=== PATIENT | female | born 2000 | race African-American/Black ===

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

== ENCOUNTER 2020-08-21 12:47 | Observation (INO) | payer SELFPAY ==
--- NOTE | 2020-08-21 13:53 | ER Document Report ---
ED Medical Screen (RME) - General Chief Complaint: Chest Pain Stated Complaint: CHEST PAIN Time Seen by Provider: 08/21/20 13:43 TRAVEL OUTSIDE OF THE [place] IN LAST 30 DAYS: No - HPI Notes: 08/21/20 13:51 19-year-old female presents to the emergency room today with left-sided chest pain that started around 9:00 last night, reports that sharp and intermittent. Denies any radiation of pain. Mother states that she woke up this morning with complaints of chest pain and shortness of breath. States 4 days ago she had high fevers and could not taste or smell anything. Denies any Covid positive test or any exposure to Covid positive individuals. Father has a history of 3 CVAs in a diabetic coma, no cardiac issues on mother side. Denies any cardiac issues per patient. LMP 08/11/2020. Denies any history of asthma, no [id number] medications have been tried. Patient does have a history of learning disability I have greeted and performed a rapid initial assessment of this patient. A comp rehensive ED assessment and evaluation of the patient, analysis of test results and completion of the medical decision making process will be conducted by additional ED providers. PHYSICAL EXAMINATION: GENERAL: Well-appearing, well-nourished and in no acute distress. HEAD: Atraumatic, normocephalic. EYES: Pupils equal round extraocular movements intact, conjunctiva are normal. NECK: Normal range of motion CV: s1, s2 tachycardia LUNGS: No respiratory distress Musculoskeletal: Normal range of motion NEUROLOGICAL: Normal speech, normal gait. SKIN: Warm, Dry, normal turgor, no rashes or lesions noted. The patient was evaluated during a global COVID-19 pandemic and that diagnosis was suspected/considered upon their initial presentation. Their evaluation, treatment and testing was consistent with current guidelines for patients who present with complaints or symptoms and may be related to COVID-19. - Related Data Allergies/Adverse Reactions: No Known Allergies Allergy (Verified 08/21/20 13:43) Past Medical History - Social History Chew tobacco use (# tins/day): No Frequency of alcohol use: None Drug Abuse: None Renal/ Medical History: Denies: Hx Peritoneal Dialysis - Immunizations Immunizations up to date: Yes Hx Diphtheria, Pertussis, Tetanus Vaccination: Yes Physical Exam - Vital signs Vitals: Temp Pulse Resp BP Pulse Ox 98.4 F 131 H 16 105/58 L 98 08/21/20 12:59 08/21/20 12:59 08/21/20 12:59 08/21/20 12:59 08/21/20 12:59 Course - Vital Signs Vital signs: Temp Pulse Resp BP Pulse Ox 98.4 F 131 H 16 105/58 L 98 08/21/20 12:59 08/21/20 12:59 08/21/20 12:59 08/21/20 12:59 08/21/20 12:59
--- NOTE | 2020-08-21 14:05 | EKG REPORT ---
SEVERITY:- OTHERWISE NORMAL ECG - SINUS TACHYCARDIA LEFT AXIS DEVIATION : Confirmed by: Juan Lima MD 21-Aug-2020 14:04:56
--- NOTE | 2020-08-21 15:25 | RADIOLOGY REPORT (SQ) ---
EXAM DESCRIPTION: CHEST SINGLE VIEW IMAGES COMPLETED DATE/TIME: 08/21/2020 3:14 pm REASON FOR STUDY: chest pain since 9pm 08/20/2020 COMPARISON: 07/30/2017 EXAM PARAMETERS: NUMBER OF VIEWS: One view. TECHNIQUE: Single frontal radiographic view of the chest acquired. RADIATION DOSE: NA LIMITATIONS: None. FINDINGS: LUNGS AND PLEURA: No opacities, masses or pneumothorax. No pleural effusion. MEDIASTINUM AND HILAR STRUCTURES: No masses. Contour normal. HEART AND VASCULAR STRUCTURES: Heart normal in size. Normal vasculature. BONES: No acute findings. HARDWARE: None in the chest. OTHER: No other significant finding. IMPRESSION: NO ACUTE RADIOGRAPHIC FINDING IN THE CHEST. TECHNICAL DOCUMENTATION: JOB ID: [id number] 2010 [employer]- All Rights Reserved Reading location - IP/workstation name: [email or web address]
[2020-08-21 15:54] LABS: ABSOLUTE BASOPHILS # (AUTO) 0.1 10^3/uL (0.0-0.2); ABSOLUTE EOSINOPHILS # (AUTO) 0.1 10^3/uL (0.0-0.6); ABSOLUTE LYMPHOCYTES (AUTO) 2.2 10^3/uL (0.5-4.7); ABSOLUTE MONOCYTES (AUTO) 0.6 10^3/uL (0.1-1.4); ABSOLUTE NEUT (AUTO) 6.3 10^3/uL (1.7-8.2); BASOPHILS % (AUTO) 0.6 % (0-2); EOSINOPHILS % (AUTO) 1.3 % (0-6); HEMATOCRIT 30.7 % (36.0-47.0); HEMOGLOBIN 10.3 g/dL (12.0-15.5); LYMPHOCYTES % (AUTO) 24.2 % (13-45); MEAN CORPUSCULAR HEMOGLOBIN 24.6 pg (27.0-33.4); MEAN CORPUSCULAR HGB CONC 33.5 g/dL (32.0-36.0); MEAN CORPUSCULAR VOLUME 73 fl (80-97); MONOCYTES % (AUTO) 6.4 % (3-13); PLATELET COUNT 419 10^3/uL (150-450); RED BLOOD COUNT 4.19 10^6/uL (3.72-5.28); RED CELL DISTRIBUTION WIDTH 16.4 % (11.5-14.0); SEGMENTED NEUTROPHILS % (AUTO) 67.5 % (42-78); TOTAL CELLS COUNTED % (AUTO) 100 %; WHITE BLOOD COUNT 9.3 10^3/uL (4.0-10.5)
[2020-08-21 16:11] LABS: ALKALINE PHOSPHATASE 73 U/L (38-126); ANION GAP 13 (5-19); ASPARTATE AMINO TRANSFERASE 42 U/L (14-36); BILIRUBIN,DIRECT 0.3 mg/dL (0.0-0.4); BLOOD UREA NITROGEN 14 mg/dL (7-20); CALCIUM 9.2 mg/dL (8.4-10.2); CARBON DIOXIDE 22 mmol/L (22-30); CHLORIDE 103 mmol/L (98-107); CREATINE KINASE 279 U/L (30-135); GLUCOSE 94 mg/dL (75-110); POTASSIUM 4.1 mmol/L (3.6-5.0); TOTAL PROTEIN 9.1 g/dL (6.3-8.2)
[2020-08-21 16:23] LABS: CREATINE KINASE MB 0.33 ng/mL (<4.55)
[2020-08-21 16:30] LABS: TROPONIN I 0.052 ng/mL
[2020-08-21 16:49] LABS: INTERNATIONAL RATION (INR) 1.07; PROTHROMBIN TIME 14.1 SEC (11.4-15.4)
[2020-08-21 16:52] LABS: D-DIMER 1.65 ug/mL (0.00-0.50)
--- NOTE | 2020-08-21 20:50 | RADIOLOGY REPORT (SQ) ---
EXAM DESCRIPTION: CT CHEST ANGIOGRAPHY WITHOUT THEN WITH IV CONTRAST COMPLETED DATE/TME: 08/21/2020 20:23 CLINICAL HISTORY: 19 years, Female, chest pain, elevated d-dimer PROCEDURE: CTA CHEST CLINICAL HISTORY: 19 years Female chest pain, elevated d-dimer COMPARISON: None. TECHNIQUE: Contiguous axial images were obtained through the chest during the infusion of IV contrast. Reformatted images obtained. MIP reformatted images obtained. This exam was performed according to our department optimization program which includes automated exposure control, adjustment of the mA and/or kv according to patient size and/or use of iterative reconstruction technique. FINDINGS: There are pulmonary emboli in the pulmonary arteries supplying the posterior left lung base and the right posterior lung base. There is atelectasis and consolidation at each lung base, left greater than right. There is a 10 x 5 mm fat attenuation lesion within the pancreas which is nonspecific. Detail is limited. No pneumothorax is seen. Heart size is normal. No pleural effusions. No lymphadenopathy. No evidence of aortic aneurysm. No other significant abnormality. IMPRESSION: Pulmonary emboli are seen in several branches of pulmonary arteries supplying both lungs. Nonspecific fat attenuation lesion in the pancreas.
--- NOTE | 2020-08-21 22:23 | ER Document Report ---
ED General - General Chief Complaint: Chest Pain Stated Complaint: CHEST PAIN Time Seen by Provider: 08/21/20 13:43 Mode of Arrival: Ambulatory Information source: Patient, Parent Cannot obtain history due to: Mentally challenged TRAVEL OUTSIDE OF THE [place] 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 The patient is able to provide some history but her mother ass ists her a fair bit. Patient denies any cough or shortness of breath. She states that her pain is gotten somewhat better since she has been here in the emergency department. She has no fever or chills. She has no chronic lung disease. She does not smoke. She and her mother deny any exposure to recent illness except for the mother herself who had URI symptoms 5 or 6 days ago. The patient is otherwise healthy on no medications. - Related Data Allergies/Adverse Reactions: No Known Allergies Allergy (Verified 08/21/20 13:43) Past Medical History - General Information source: Parent - Social History Smoking Status: Never Smoker Chew tobacco use (# tins/day): No Frequency of alcohol use: None Drug Abuse: None Family History: Reviewed & Not Pertinent Patient has homicidal ideation: No - Medical History Medical History: Other Notes: Cognitive impairment. Renal/ Medical History: Denies: Hx Peritoneal Dialysis - Immunizations Immunizations up to date: Yes Hx Diphtheria, Pertussis, Tetanus Vaccination: Yes Review of Systems - Review of Systems Notes: All other systems are reviewed and are negative or noncontributory except as noted in the present illness. Physical Exam - Vital signs Vitals: Temp Pulse Resp BP Pulse Ox 98.4 F 131 H 16 105/58 L 98 08/21/20 12:59 08/21/20 12:59 08/21/20 12:59 08/21/20 12:59 08/21/20 12:59 - Notes Notes: General: Cheerful alert obese female no acute distress. Vital signs and nursing documentation are reviewed. HEENT: Grossly normal to inspection. Neck: Supple, nontender, trachea midline, no adenopathy. Chest: Normal configuration. Nontender to palpation. Lungs have good air entry bilaterally with no wheezes, rhonchi, or rales heard. Heart: Regular rate and rhythm without murmur rub or gallop. Mild tachycardia initially which normalized as the patient relaxed here in the emergency department. Abdomen: Soft, nontender, no masses organomegaly. Extremities: Without clubbing cyanosis or edema. Negative Homans' sign bilaterally in lower extremities. Skin: Warm moist good turgor no rashes. Neurologic: Patient is alert and oriented x3. No focal neuro deficits are noted. Course - Re-evaluation Re-evalutation: 08/22/20 01:34 Patient remained stable and essentially asymptomatic throughout her stay. Her oxygen saturations were normal. Her blood work showed elevation of her inflammatory markers and her D-dimer. CTA of the chest revealed bilateral lower lobe pulmonary emboli. Patient's initial troponin was slightly elevated and ind eterminate. Repeat troponin was trending downward. Surprisingly, her COVID-19 test ultimately came back negative. Case was discussed with the hospitalist on duty and he accepted the patient for admission. - Vital Signs Vital signs: Temp Pulse Resp BP Pulse Ox 98.2 F 129 H 18 109/71 99 08/22/20 00:39 08/22/20 00:39 08/22/20 00:39 08/22/20 00:39 08/22/20 00:39 - Laboratory Results Result Diagrams: 08/21/20 15:30 08/21/20 15:30 Laboratory Results Interpreted: 08/21/20 08/21/20 08/21/20 15:30 15:30 15:30 Hgb 10.3 L Hct 30.7 L MCV 73 L MCH 24.6 L RDW 16.4 H ESR 105 H APTT D-Dimer AST 42 H Creatine Kinase 279 H C-Reactive Protein Total Protein 9.1 H 08/21/20 08/21/20 15:30 15:30 Hgb Hct MCV MCH RDW ESR APTT 36.0 H D-Dimer 1.65 H AST Creatine Kinase C-Reactive Protein 49.3 H Total Protein 08/22/20 01:33 Labs- All tests 24 hr 08/21/20 08/21/20 08/21/20 15:30 15:30 15:30 WBC 9.3 RBC 4.19 Hgb 10.3 L Hct 30.7 L MCV 73 L MCH 24.6 L MCHC 33.5 RDW 16.4 H Plt Count 419 Lymph % (Auto) 24.2 [place] % (Auto) 6.4 Eos % (Auto) 1.3 Baso % (Auto) 0.6 Absolute Neuts (auto) 6.3 Absolute Lymphs (auto) 2.2 Absolute Monos (auto) 0.6 Absolute Eos (auto) 0.1 Absolute Basos (auto) 0.1 Seg Neutrophils % 67.5 ESR PT INR APTT D-Dimer Sodium 138.1 Potassium 4.1 Chloride 103 Carbon Dioxide 22 Anion Gap 13 BUN 14 Creatinine 0.86 Est GFR ( Amer) > 60 Est GFR (MDRD) Non-Af > 60 Glucose 94 Calcium 9.2 Total Bilirubin 1.0 Direct Bilirubin 0.3 Neonat Total Bilirubin Not Reportable Neonat Direct Bilirubin Not Reportable Neonat Indirect Bili Not Reportable AST 42 H ALT 30 Alkaline Phosphatase 73 Creatine Kinase 279 H CK-MB (CK-2) 0.33 Troponin I 0.052 C-Reactive Protein Total Protein 9.1 H Albumin 4.0 TSH Urine HCG, Qual COVID-19 Source COVID-19 ([facility]) Influenza A (RT-PCR) Influenza B (RT-PCR) RSV (RT-PCR) SARS-CoV-2 Rap RNA(RT-PCR) 08/21/20 08/21/20 08/21/20 15:30 15:30 15:30 WBC RBC Hgb Hct MCV MCH MCHC RDW Plt Count Lymph % (Auto) Beaver % (Auto) Eos % (Auto) Baso % (Auto) Absolute Neuts (auto) Absolute Lymphs (auto) Absolute Monos (auto) Absolute Eos (auto) Absolute Basos (auto) Seg Neutrophils % ESR 105 H PT INR APTT D-Dimer Sodium Potassium Chloride Carbon Dioxide Anion Gap BUN Creatinine Est GFR ( Amer) Est GFR (MDRD) Non-Af Glucose Calcium Total Bilirubin Direct Bilirubin Neonat Total Bilirubin Neonat Direct Bilirubin Neonat Indirect Bili AST ALT Alkaline Phosphatase Creatine Kinase CK-MB (CK-2) Troponin I C-Reactive Protein Total Protein Albumin TSH 1.20 Urine HCG, Qual NEGATIVE COVID-19 Source COVID-19 ([facility]) Influenza A (RT-PCR) Influenza B (RT-PCR) RSV (RT-PCR) SARS-CoV-2 Rap RNA(RT-PCR) 08/21/20 08/21/20 08/21/20 15:30 15:30 17:30 WBC RBC Hgb Hct MCV MCH MCHC RDW Plt Count Lymph % (Auto) Beaver % (Auto) Eos % (Auto) Baso % (Auto) Absolute Neuts (auto) Absolute Lymphs (auto) Absolute Monos (auto) Absolute Eos (auto) Absolute Basos (auto) Seg Neutrophils % ESR PT 14.1 INR 1.07 APTT 36.0 H D-Dimer 1.65 H Sodium Potassium Chloride Carbon Dioxide Anion Gap BUN Creatinine Est GFR ( Amer) Est GFR (MDRD) Non-Af Glucose Calcium Total Bilirubin Direct Bilirubin Neonat Total Bilirubin Neonat Direct Bilirubin Neonat Indirect Bili AST ALT Alkaline Phosphatase Creatine Kinase CK-MB (CK-2) Troponin I C-Reactive Protein 49.3 H Total Protein Albumin TSH Urine HCG, Qual COVID-19 Source Cancelled COVID-19 ([facility]) Cancelled Influenza A (RT-PCR) Influenza B (RT-PCR) RSV (RT-PCR) SARS-CoV-2 Rap RNA(RT-PCR) 08/21/20 08/21/20 17:30 19:23 WBC RBC Hgb Hct MCV MCH MCHC RDW Plt Count Lymph % (Auto) Beaver % (Auto) Eos % (Auto) Baso % (Auto) Absolute Neuts (auto) Absolute Lymphs (auto) Absolute Monos (auto) Absolute Eos (auto) Absolute Basos (auto) Seg Neutrophils % ESR PT INR APTT D-Dimer Sodium Potassium Chloride Carbon Dioxide Anion Gap BUN Creatinine Est GFR ( Amer) Est GFR (MDRD) Non-Af Glucose Calcium Total Bilirubin Direct Bilirubin Neonat Total Bilirubin Neonat Direct Bilirubin Neonat Indirect Bili AST ALT Alkaline Phosphatase Creatine Kinase CK-MB (CK-2) Troponin I 0.040 C-Reactive Protein Total Protein Albumin TSH Urine HCG, Qual COVID-19 Source COVID-19 ([facility]) Influenza A (RT-PCR) NEGATIVE Influenza B (RT-PCR) NEGATIVE RSV (RT-PCR) NEGATIVE SARS-CoV-2 Rap RNA(RT-PCR) NEGATIVE Critical Laboratory Results Reviewed: No Critical Results - Radiology Results Radiology Results Interpreted: 08/22/20 01:33 Chest X-Ray 08/21/20 13:50 IMPRESSION: NO ACUTE RADIOGRAPHIC FINDING IN THE CHEST. Chest/Abdomen CTA 08/21/20 18:12 IMPRESSION: Pulmonary emboli are seen in several branches of pulmonary arteries supplying both lungs. Nonspecific fat attenuation lesion in the pancreas. Critical Radiology Results Reviewed: No Critical Results - EKG Interpretation by Me EKG shows normal: Sinus rhythm, Intervals, QRS Complexes, ST-T Waves Rate: Tachycardia Rhythm: NSR Discharge - Discharge Clinical Impression: Bilateral pulmonary embolism Condition: Stable Disposition: ADMITTED INPATIENT Admitting Provider: Melodie (Hospitalist) Unit Admitted: Medical Floor
[2020-08-21] MEDS ORDERED: NITROGLYCERIN 0.4 MG/TAB 25 TAB/BOTTLE SL PRN (22:43)
[2020-08-21] MEDS ORDERED: METOPROLOL TARTRATE PF/INJ 5 MG/5 ML SDV IV PRN (22:43)
[2020-08-21] MEDS ORDERED: MORPHINE SULFATE 10 MG/ML INJ IV PRN (22:43)
[2020-08-21] MEDS ORDERED: ACETAMINOPHEN 325 MG TABLET PO PRN (22:49)
[2020-08-21] MEDS ORDERED: TEMAZEPAM 7.5 MG CAPSULE PO PRN (22:49)
[2020-08-21] MEDS ORDERED: LEVALBUTEROL HCL NEB 0.63 MG/3 ML AMPUL NEB PRN (22:49)
[2020-08-21] MEDS ORDERED: ONDANSETRON HCL INJ/PF 4 MG/2 ML SDV IV PRN (22:49)
[2020-08-21] MEDS ORDERED: PROMETHAZINE HCL INJ 25 MG/1 ML VIAL IV PRN (22:49)
[2020-08-21] MEDS ORDERED: ASPIRIN 325 MG TABLET PO ONE (23:00)
--- NOTE | 2020-08-21 23:36 | PDOC H&P ---
History of Present Illness Admission Date/PCP: 08/21/20 22:26 History of Present Illness: ASHLEY MARISCAL is a 19 year old female with past medical history of developmental delay, who is being cared for by her parents, brought to ED by her mother complaining of chest pain of 1 day duration. Patient is stating that for the last several days she has been feeling weak, has been feeling febrile, has lost loss of smell and taste. Since last night she started developing left-sided nonradiating pleuritic chest pain. Chest pain is described as sharp, 3/4 on severity scale, worse with cough, movement and breathing, no alleviating factors identified. As per mother who is present in the room yesterday tonight her father had a fall and both mother and daughter had to help him up, she thinks she may have had pulled a muscle. Patient is not working due to her developmental delay, has not had any recent travel, no recent hospitalization, immobilization, or any lower extremity trauma swelling or redness, patient is not taking any medication except for one medication for perimenstrual cramping, she does not recall the name, patient denies having any history of CAD or any history of PE or DVT in the past. Patient denies any shortness of breath, lightheadedness, palpitation, orthopnea, paroxysmal nocturnal dyspnea, headache, vision changes, numbness, tingling, upper or lower extremity swelling, any focal neurological symptoms. When asked about exposure to anybody with COVID-19 infection patient and mother both deny being exposed to anybody and mother stating that patient has no contact with anybody with COVID-19 infection and she hardly gets out of the home, patient mother herself stating that she only goes for grocery shopping and she is very careful with her Covid precautions. Patient mother states that she also have history of DVT for which she was taking Xarelto for several months and currently she is off of it. In ED she was noted to be tachypneic, elevated ESR, elevated D-dimer, elevated CK, elevated troponin, evaded C-reactive protein, a chest CTA showed pulmonary emboli in several branches of pulmonary arteries supplying both lungs. Hospitalist was consulted for admission. Social History Smoking Status: Never Smoker Electronic Cigarette use?: No Family History Family History: Reviewed & Not Pertinent Parental Family History Reviewed: Yes Children Family History Reviewed: Yes Sibling(s) Family History Reviewed.: Yes Medication/Allergy Home Medications: Sulfamethoxazole/Trimethoprim [Bactrim Ds Tablet] 1 each PO BID #14 tablet 07/31/17 Allergies/Adverse Reactions: No Known Allergies Allergy (Verified 08/21/20 13:43) Review of Systems Review of Systems: as per hpi Physical Exam Vital Signs: Temp Pulse Resp BP Pulse Ox 98.4 F 131 H 19 120/83 96 08/21/20 12:59 08/21/20 12:59 08/21/20 17:01 08/21/20 17:01 08/21/20 17:01 Intake & Output 08/20/20 08/21/20 08/22/20 06:59 06:59 06:59 Weight 122.8 kg General appearance: PRESENT: obese Head exam: PRESENT: atraumatic, normocephalic Neck exam: ABSENT: carotid bruit, JVD, lymphadenopathy, thyromegaly Respiratory exam: PRESENT: clear to auscultation zeke. ABSENT: rales, rhonchi, wheezes GI/Abdominal exam: PRESENT: normal bowel sounds, soft. ABSENT: distended, guard ing, mass, organolmegaly, rebound, tenderness Rectal exam: PRESENT: deferred Neurological exam: PRESENT: alert, awake, oriented to person, oriented to place, oriented to time, oriented to situation, CN II-XII grossly intact. ABSENT: motor sensory deficit Skin exam: PRESENT: dry, intact, warm. ABSENT: cyanosis, rash Results Laboratory Results: 08/21/20 15:30 08/21/20 15:30 08/21/20 08/21/20 08/21/20 15:30 15:30 15:30 WBC 9.3 RBC 4.19 Hgb 10.3 L Hct 30.7 L MCV 73 L MCH 24.6 L MCHC 33.5 RDW 16.4 H Plt Count 419 Seg Neutrophils % 67.5 Sodium 138.1 Potassium 4.1 Chloride 103 Carbon Dioxide 22 Anion Gap 13 BUN 14 Creatinine 0.86 Est GFR ( Amer) > 60 Glucose 94 Calcium 9.2 Total Bilirubin 1.0 AST 42 H Alkaline Phosphatase 73 C-Reactive Protein Total Protein 9.1 H Albumin 4.0 TSH 1.20 08/21/20 15:30 WBC RBC Hgb Hct MCV MCH MCHC RDW Plt Count Seg Neutrophils % Sodium Potassium Chloride Carbon Dioxide Anion Gap BUN Creatinine Est GFR ( Amer) Glucose Calcium Total Bilirubin AST Alkaline Phosphatase C-Reactive Protein 49.3 H Total Protein Albumin TSH 08/21/20 08/21/20 08/21/20 15:30 15:30 19:23 Creatine Kinase 279 H CK-MB (CK-2) 0.33 Troponin I 0.052 0.040 Impressions: Chest X-Ray 08/21/20 13:50 IMPRESSION: NO ACUTE RADIOGRAPHIC FINDING IN THE CHEST. Chest/Abdomen CTA 08/21/20 18:12 IMPRESSION: Pulmonary emboli are seen in several branches of pulmonary arteries supplying both lungs. Nonspecific fat attenuation lesion in the pancreas. Assessment and Plan - Diagnosis (1) Bilateral pulmonary embolism Is this a current diagnosis for this admission?: Yes Plan: Unprovoked bilateral PE. Complaining of left-sided pleuritic chest pain and mid upper back pain presentation. Denies any history of previous DVT or PE. CTA positive for multiple PE and several branches of pulmonary arteries bilaterally. ESR 105, D-dimer 1.65, troponin 0 0.052, 0.040, CRP 49.3, SPO2 WNL on RA. EKG sinus tachycardia no acute changes. Of note given patient history of loss of taste, objective fever and loss of smell COVID-19 infection was suspected however COVID-19 serology came back negative. Positive family history of DVT. Denies any recent travel, immobilization, surgery, upper or lower extremity trauma, OCP intake or any malignancy. Due to patient's developmental delay had extensive discussion regarding chronic anticoagulation with patient and mother. Patient's mother stating that she was taking Xarelto and she would like her daughter to be placed on Xarelto to as she is already familiar with the medicat ion. Admit to telemetry, monitor vitals, opioid and nonopioid analgesics for chest pain while monitoring for respiratory depression, incentive spirometry and flutter valve. [employer] Field Service Technician consulted for possible help and to medication assistance. (2) Elevated troponin Is this a current diagnosis for this admission?: Yes Plan: Complaining of nonradiating pleuritic chest pain worse with coughing, movement and breathing. CTA positive for multiple PE and several branches of pulmonary arteries bilaterally. ESR 105, D-dimer 1.65. Troponin 0.052, 0.040 CRP 49.3. SPO2 WNL on RA. EKG sinus tachycardia otherwise no acute changes. Denies any family or personal history of CAD. Most likely due to demand mismatch caused by multiple pulmonary embolus. Case was discussed with Dr. Callaway highway truck driver over the phone. As per Dr. Callaway elevated troponins could be explained by PE and no cardiac work-up or cardiology consult are recommended. Recommendation is to admit to telemetry and monitor, order 2D echo and if indicated consult cardiology. Admit extremity, trend troponins, antiplatelets, statins, 2D echo. (3) Morbid obesity Is this a current diagnosis for this admission?: Yes Plan: BMI 41.2. Diet and lifestyle modification recommended. TSH WNL. - Time Time Spent with patient: 35 or more minutes Anticipated Discharge Disposition: Home, Self Care Anticipated Discharge Timeframe: within 36 hours
[2020-08-22] MEDS: FAMOTIDINE 20 MG TABLET PO SCH ×3 (00:10→21:02)
[2020-08-22] MEDS: ATORVASTATIN CALCIUM 40 MG TABLET PO SCH ×2 (00:10→21:02)
[2020-08-22] MEDS ORDERED: RIVAROXABAN 15 MG TABLET ONE (01:17)
[2020-08-22] MEDS: DEXTROSE 5%-1/2 NORMAL SALINE 1,000 ML IV PRN ×2 (06:03→20:20)
[2020-08-22] MEDS: RIVAROXABAN 15 MG TABLET PO SCH ×3 (07:31→16:28)
[2020-08-22 07:42] LABS: ABSOLUTE EOSINOPHILS # (AUTO) 0.2 10^3/uL (0.0-0.6); ABSOLUTE LYMPHOCYTES (AUTO) 2.4 10^3/uL (0.5-4.7); ABSOLUTE MONOCYTES (AUTO) 0.6 10^3/uL (0.1-1.4); ABSOLUTE NEUT (AUTO) 4.4 10^3/uL (1.7-8.2); BASOPHILS % (AUTO) 0.3 % (0-2); HEMATOCRIT 27.8 % (36.0-47.0); HEMOGLOBIN 9.5 g/dL (12.0-15.5); LYMPHOCYTES % (AUTO) 31.8 % (13-45); MEAN CORPUSCULAR HEMOGLOBIN 24.6 pg (27.0-33.4); MEAN CORPUSCULAR VOLUME 73 fl (80-97); MONOCYTES % (AUTO) 7.7 % (3-13); PLATELET COUNT 418 10^3/uL (150-450); RED BLOOD COUNT 3.84 10^6/uL (3.72-5.28); RED CELL DISTRIBUTION WIDTH 16.4 % (11.5-14.0); SEGMENTED NEUTROPHILS % (AUTO) 58.2 % (42-78); TOTAL CELLS COUNTED % (AUTO) 100 %; WHITE BLOOD COUNT 7.5 10^3/uL (4.0-10.5)
[2020-08-22 08:01] LABS: ALBUMIN 3.7 g/dL (3.5-5.0); ALKALINE PHOSPHATASE 60 U/L (38-126); ANION GAP 12 (5-19); ASPARTATE AMINO TRANSFERASE 29 U/L (14-36); BILIRUBIN,DIRECT 0.3 mg/dL (0.0-0.4); BILIRUBIN,TOTAL 0.8 mg/dL (0.2-1.3); BLOOD UREA NITROGEN 13 mg/dL (7-20); CALCIUM 8.9 mg/dL (8.4-10.2); CARBON DIOXIDE 23 mmol/L (22-30); CHLORIDE 102 mmol/L (98-107); GLUCOSE 99 mg/dL (75-110); POTASSIUM 3.8 mmol/L (3.6-5.0); TOTAL PROTEIN 8.2 g/dL (6.3-8.2)
[2020-08-22] MEDS: DOCUSATE SODIUM 100 MG/10 ML UDC PO SCH (09:29)
[2020-08-22] MEDS: ASPIRIN 81 MG TABLET, CHEWABLE PO SCH (09:29)
--- NOTE | 2020-08-22 16:15 | PDOC PROGRESS REPORT ---
Subjective Date:: 08/22/20 Subjective:: ASHLEY MARISCAL is a 19 year old female with past medical history of developmental delay, who is being cared for by her parents, brought to ED on 08/22/2020 by her mother complaining of chest pain of [address] notable for pulmonary emboli in several branches of pulmonary arteries supplying both lungs. Patient started on Xarelto. Patient without risk factors for PE/DVT. Notably patient's mother with history of DVT. Patient seen on morning rounds. She is resting in bed but awakes easily. O2 sats within normal limits on room air. States that she gets short of breath when exerting herself (i.e putting on her bra) this quickly resolves with rest. Additionally notes cough but states this is minimal. Otherwise denies lightheadedness, chest pain, palpitations, headache, vision changes, numbness, tingling, or any focal neurological symptoms. Discussed case with nursing no complaints or concerns today. Patient was agreeable to calling mother during evaluation evaluation conducted with mother on the phone. Explained with the patient and the mother that we are waiting for an echo to be done before discharging patient home. Both expressed understanding for need of study and are agreeable to this means of treatment. Patient's mother tells me that she will be coming in tomorrow as early as 9:30 AM it is my hope that patient educator will be able to educate patient on Xarelto medication management while mother is present. Reason For Visit: PE, CHEST PAIN Physical Exam Vital Signs: Temp Pulse Resp BP Pulse Ox 97.9 F 92 16 109/64 99 08/22/20 12:06 08/22/20 14:00 08/22/20 12:06 08/22/20 12:06 08/22/20 12:06 Intake & Output 08/21/20 08/22/20 08/23/20 06:59 06:59 06:59 Intake Total 120 Balance 120 Weight 125.8 kg General appearance: PRESENT: no acute distress, cooperative, obese Head exam: PRESENT: atraumatic, normocephalic Eye exam: PRESENT: EOMI Mouth exam: PRESENT: moist Neck exam: PRESENT: full ROM. ABSENT: JVD Respiratory exam: PRESENT: clear to auscultation zeke. ABSENT: rales, rhonchi, wheezes Cardiovascular exam: PRESENT: RRR GI/Abdominal exam: PRESENT: soft. ABSENT: tenderness Extremities exam: PRESENT: full ROM Musculoskeletal exam: PRESENT: ambulatory. ABSENT: deformity, dislocation Neurological exam: PRESENT: alert, awake, oriented to person, oriented to place, oriented to time, oriented to situation, CN II-XII grossly intact. ABSENT: motor sensory deficit Psychiatric exam: PRESENT: appropriate affect Skin exam: PRESENT: dry, intact. ABSENT: rash Results Laboratory Results: 08/22/20 07:18 08/22/20 07:18 08/21/20 08/21/20 08/21/20 15:30 15:30 15:30 WBC RBC Hgb Hct MCV MCH MCHC RDW Plt Count Seg Neutrophils % Sodium 138.1 Potassium 4.1 Chloride 103 Carbon Dioxide 22 Anion Gap 13 BUN 14 Creatinine 0.86 Est GFR ( Amer) > 60 Glucose 94 Calcium 9.2 Magnesium Total Bilirubin 1.0 AST 42 H Alkaline Phosphatase 73 C-Reactive Protein 49.3 H Total Protein 9.1 H Albumin 4.0 TSH 1.20 08/22/20 08/22/20 07:18 07:18 WBC 7.5 RBC 3.84 Hgb 9.5 L Hct 27.8 L MCV 73 L MCH 24.6 L MCHC 34.0 RDW 16.4 H Plt Count 418 Seg Neutrophils % 58.2 Sodium 137.2 Potassium 3.8 Chloride 102 Carbon Dioxide 23 Anion Gap 12 BUN 13 Creatinine 0.69 Est GFR ( Amer) > 60 Glucose 99 Calcium 8.9 Magnesium 2.4 H Total Bilirubin 0.8 AST 29 Alkaline Phosphatase 60 C-Reactive Protein Total Protein 8.2 Albumin 3.7 TSH 08/21/20 08/21/20 08/21/20 15:30 15:30 19:23 Creatine Kinase 279 H CK-MB (CK-2) 0.33 Troponin I 0.052 0.040 08/22/20 08/22/20 01:32 07:18 Creatine Kinase CK-MB (CK-2) Troponin I 0.034 0.024 Impressions: Chest X-Ray 08/21/20 13:50 IMPRESSION: NO ACUTE RADIOGRAPHIC FINDING IN THE CHEST. Chest/Abdomen CTA 08/21/20 18:12 IMPRESSION: Pulmonary emboli are seen in several branches of pulmonary arteries supplying both lungs. Nonspecific fat attenuation lesion in the pancreas. Assessment and Plan - Diagnosis (1) Bilateral pulmonary embolism Is this a current diagnosis for this admission?: Yes Plan: Presented with 1 day history left-sided pleuritic chest pain. Unprovoked bilateral PE. - CTA positive for multiple PE and several branches of pulmonary arteries bilaterally. - ESR 105, D-dimer 1.65, troponin 0 0.052, 0.040, CRP 49.3, SPO2 WNL on RA. - EKG sinus tachycardia no acute changes. - Denies any history of previous DVT or PE. - Interestingly she has positive family history of DVT. Denies other risk factors. Xarelto 15 mg by mouth twice daily x21 days followed by 20 mg by mouth daily. Continue telemetry, monitor vitals, opioid and nonopioid analgesics for chest pain while monitoring for respiratory depression, incentive spirometry and flutter valve. Food Mixer consulted for possible help and to medication assistance. (2) Elevated troponin Is this a current diagnosis for this admission?: Yes Plan: Presented with left-sided pleuritic chest pain secondary to pulmonary embolism. Troponin 0.052, 0.040; likely due to demand mismatch caused by multiple pulmonary embolus. - CTA positive for multiple PE and several branches of pulmonary arteries bilaterally. - ESR 105, D-dimer 1.65. CRP 49.3. - SPO2 WNL on RA. - EKG sinus tachycardia otherwise no acute changes. - Denies any family or personal history of CAD. As per admitting provider: Case was discussed with Dr. Callaway cad technician over the phone. - Elevated troponins could be explained by PE and no cardiac work-up or ca rdiology consult are recommended. 2D echo pending Continue antiplatelets, statins, 2D echo. (3) Morbid obesity Is this a current diagnosis for this admission?: Yes Plan: BMI 41.2. Diet and lifestyle modification recommended. - Plan Summary Summary: Overall significant improvement in patient's symptoms. Chest pain has essentially resolved though she is getting short of breath specifically with exertion. 2D echo has been ordered and is pending. I suspect will be able to discharge patient home tomorrow. - Time Time Spent with patient: 35 or more minutes Medications reviewed and adjusted accordingly: Yes Anticipated Discharge Disposition: Home, Self Care Anticipated Discharge Timeframe: within 24 hours
[2020-08-23] MEDS: RIVAROXABAN 15 MG TABLET PO SCH ×2 (09:04→16:22)
[2020-08-23] MEDS: DEXTROSE 5%-1/2 NORMAL SALINE 1,000 ML IV PRN (09:11)
[2020-08-23] MEDS: DOCUSATE SODIUM 100 MG/10 ML UDC PO SCH (12:03)
[2020-08-23] MEDS: ASPIRIN 81 MG TABLET, CHEWABLE PO SCH (12:03)
[2020-08-23] MEDS: FAMOTIDINE 20 MG TABLET PO SCH (12:03)
--- NOTE | 2020-08-23 13:54 | XCELERA REPORT ---
[address] [address] Transthoracic Echocardiogram Report Name: ASHLEY MARISCAL Age: 19 yrs Gender: Female : 2000 Patient Status: Inpatient Patient Location: [address] [place], [place] [id number] Study Date: 08/23/2020 11:13 AM Height: 67 in Weight: 278 lb BSA: 2.3 m2 Procedure: A complete two-dimensional transthoracic echocardiogram was performed (2D, M-mode, spectral and color flow Doppler). The study was technically difficult with many images being suboptimal in quality. The subcostal views were difficult to obtain and are suboptimal in quality. Reason For Study: elevated trop Ordering Physician: HALEIGH TIM Performed By: Negra Sauceda Interpretation Summary The left ventricle is grossly normal size. Left ventricular systolic function is low normal. Doppler measurements suggest impaired left ventricular relaxation, which is associated with grade I/IV or mild diastolic dysfunction. The left ventricular wall motion is normal. Ejection fraction estimated at 50%. The right ventricle is not well visualized secondary to technical limitations. Trace MR, trace TR, trace PI. No prior studies for comparison. MMode/2D Measurements & Calculations RVDd: 2.7 cm LVIDd: 5.2 cm FS: 30.4 % Ao root diam: IVSd: 0.92 cm LVIDs: 3.6 cm EDV(Teich): 2.3 cm 129.4 ml Ao root area: LVPWd: 0.91 cm ESV(Teich): 4.0 cm2 55.0 ml LA dimension: EF(Teich): 57.5 % 3.1 cm LVLd ap4: 7.9 cm SV(MOD-sp4): EDV(MOD-sp4): 54.0 ml 101.0 ml LVLs ap4: 6.8 cm ESV(MOD-sp4): 47.0 ml EF(MOD-sp4): 53.5 % Doppler Measurements & Calculations MV E max mervin: MV P1/2t max mervin: Ao V2 max: LV V1 max P.2 cm/sec 54.5 cm/sec 119.0 cm/sec 3.7 mmHg MV A max mervin: MV P1/2t: 62.3 msec Ao max PG: LV V1 max: 70.6 cm/sec MVA(P1/2t): 3.5 cm2 5.7 mmHg 96.0 cm/sec MV E/A: 0.77 MV dec slope: 256.4 cm/sec2 MV dec time: 0.22 sec PA V2 max: PI end-d mervin: TR max mervin: MV P1/2t-pr_phl: 77.5 cm/sec 86.0 cm/sec 182.3 cm/sec 62.3 msec PA max PG: TR max P.4 mmHg 13.3 mmHg Left Ventricle The left ventricle is grossly normal size. Left ventricular systolic function is low normal. Doppler measurements suggest impaired left ventricular relaxation, which is associated with grade I/IV or mild diastolic dysfunction. The left ventricular wall motion is normal. Ejection fraction estimated at 50%. Right Ventricle The right ventricle is not well visualized secondary to technical limitations. Atria The right atrium is normal. The left atrial size is normal. Interarterial septum not well visualized and not well dopplered. Cannot comment on ASD/PFO presence. Mitral Valve The mitral valve is normal in structure and function. There is no evidence of mitral valve prolapse. There is no mitral valve stenosis. There is a trace amount of mitral regurgitation. Aortic Valve The aortic valve is normal in structure and functions normally. There is no aortic valve stenosis. No aortic regurgitation is present. Tricuspid Valve The tricuspid valve is not well visualized secondary to technical limitations. There is a trace amount of tricuspid regurgitation. Pulmonic Valve The pulmonic valve is not well visualized. There is a trace or physiologic amount of pulmonic regurgitation. Great Vessels The aortic root is normal size. The inferior vena cava appeared normal and decreased > 50% with respiration (RAP 5-10 mmHg). Effusions There is no pericardial effusion. : HALEIGH TIM Antonio
--- NOTE | 2020-08-23 16:10 | PDOC DISCHARGE SUMMARY ---
Impression - Admit/DC Date/PCP Admission Date/Primary Care Provider: 08/21/20 22:26 Discharge Date: 08/23/20 - Discharge Diagnosis (1) Bilateral pulmonary embolism Is this a current diagnosis for this admission?: Yes (2) Elevated troponin Is this a current diagnosis for this admission?: Yes (3) Morbid obesity Is this a current diagnosis for this admission?: Yes - Additional Information Resuscitation Status: Full Code Discharge Diet: As Tolerated Discharge Activity: Activity As Tolerated Referrals: [facility] [Outside] LOCALMD,NO [NO LOCAL MD] - Follow up as needed Prescriptions: Rivaroxaban [Xarelto 15 mg Tablet] 15 mg PO BID #60 tablet Home Medications: Rivaroxaban [Xarelto 15 mg Tablet] 15 mg PO BID #60 tablet 08/23/20 History of Present Illiness History of Present Illness: As per admitting physician "ASHLEY MARISCAL is a 19 year old female with past medical history of developmental delay, who is being cared for by her parents, brought to ED by her mother complaining of chest pain of 1 day duration. Patient is stating that for the last several days she has been feeling weak, has been feeling febrile, has lost loss of smell and taste. Since last night she started developing left-sided nonradiating pleuritic chest pain. Chest pain is described as sharp, 3/4 on severity scale, worse with cough, movement and breathing, no alleviating factors identified. As per mother who is present in the room yesterday tonight her father had a fall and both mother and daughter had to help him up, she thinks she may have had pulled a muscle. Patient is not working due to her developmental delay, has not had any recent travel, no recent hospitalization, immobilization, or any lower extremity trauma swelling or redness, patient is not taking any medication except for one medication for perimenstrual cramping, she does not recall the name, patient denies having any history of CAD or any history of PE or DVT in the past. Patient denies any shortness of breath, lightheadedness, palpitation, orthopnea, paroxysmal nocturnal dyspnea, headache, vision changes, numbness, tingling, upper or lower extremity swelling, any focal neurological symptoms. When asked about exposure to anybody with COVID-19 infection patient and mother both deny being exposed to anybody and mother stating that patient has no contact with anybody with COVID-19 infection and she hardly gets out of the home, patient mother herself stating that she only goes for grocery shopping and she is very careful with her Covid precautions. Patient mother states that she also have history of DVT for which she was taking Xarelto for several months and currently she is off of it. In ED she was noted to be tachypneic, elevated ESR, elevated D-dimer, elevated CK, elevated troponin, evaded C-reactive protein, a chest CTA showed pulmonary emboli in several branches of pulmonary arteries supplying both lungs. Hospitalist was consulted for admission." Hospital Course Hospital Course: Per patient's mother who was present at the time of my exam patient with cognitive impairment. Patient was present and interactive during all conversations though the majority of the conversations were held between the patient's mother and myself. Bilateral pulmonary embolism Prior to discharge patient is doing well denies chest pain at current and reports minimal chest pain specifically with cough which is rare. Presented with 1 day history left-sided pleuritic chest pain. Unprovoked bilateral PE. Of note discussed with mother and patient both state that patient remains relatively static during the day often seated and is not very active. Patient was educated on getting up and moving around for at least 5 to 10 minutes every hour that she is awake patient is understanding and agreeable to this. Patient's mother reports that she is understanding and agreeable to this as well. - CTA positive for multiple PE and several branches of pulmonary arteries bilaterally. - ESR 105, D-dimer 1.65, troponin 0 0.052, 0.040, CRP 49.3, SPO2 WNL on RA. - EKG sinus tachycardia no acute changes. - Denies any history of previous DVT or PE. - Interestingly she has positive family history of DVT. Denies other risk factors. Xarelto 15 mg by mouth twice daily x21 days followed by 20 mg by mouth daily. Pain is managed with Tylenol. Spirometry and flutter valve at bedside. Redipper consulted for possible help and to medication assistance. Provided prescription and coupon for 30-day free Xarelto. Additionally showcase maker discussed Xarelto coupon and further Xarelto programs with the patient and mother in detail. Patient is not established with a primary care provider Case management additionally provided patient's mother with information for community care. Additionally I spent approximately 30 minutes in the room with the patient and patient's mother providing medication and disease management education moving forward. Patient's mother expressed understanding and was able to relay information provided to her back to me. Additionally I have provided them with a patient information printout packet on [employer]. Elevated troponin Presented with left-sided pleuritic chest pain secondary to pulmonary embolism. Troponin 0.052, 0.040; likely due to demand mismatch caused by multiple pulmonary embolus. - CTA positive for multiple PE and several branches of pulmonary arteries bilaterally. - ESR 105, D-dimer 1.65. CRP 49.3. - SPO2 WNL on RA. - EKG sinus tachycardia otherwise no acute changes. - Denies any family or personal history of CAD. As per admitting provider: Case was discussed with Dr. Callaway experimental rocketsled mechanic over the phone. - Elevated troponins could be explained by PE and no cardiac work-up or cardiology consult are recommended. 08/23/2020 2D echo results: LV systolic function were normal, grade 1 mild diastolic dysfunction. Left ventricular wall motion normal. Ejection fraction 50%. Poorly visualized right ventricle secondary to technical limitations. Trace MR, trace TR, trace PI. Patient stable and ready for discharge. Morbid obesity BMI 41.2. Patient's mother and patient confirm a relatively sedentary lifestyle. Patient educated to get up and move at least 5 to 10 minutes every hour and elevate her heart rate for at least 30 minutes daily. Additionally she was encouraged on healthy dietary choices. Physical Exam Vital Signs: Temp Pulse Resp BP Pulse Ox 97.8 F 90 18 105/54 L 99 08/23/20 15:36 08/23/20 15:36 08/23/20 15:36 08/23/20 15:36 08/23/20 15:36 Intake & Output 08/22/20 08/23/20 08/24/20 06:59 06:59 06:59 Intake Total 1120 1000 Balance 1120 1000 Weight 125.8 kg 125.8 kg Additional comments: General appearance: PRESENT: no acute distress, cooperative, obese Head exam: PRESENT: atraumatic, normocephalic Eye exam: PRESENT: EOMI Mouth exam: PRESENT: moist Neck exam: PRESENT: full ROM. ABSENT: JVD Respiratory exam: PRESENT: clear to auscultation zeke. ABSENT: rales, rhonchi, wheezes Cardiovascular exam: PRESENT: RRR GI/Abdominal exam: PRESENT: soft. ABSENT: tenderness Extremities exam: PRESENT: full ROM Musculoskeletal exam: PRESENT: ambulatory. ABSENT: deformity, dislocation Neurological exam: PRESENT: alert, awake, oriented to person, oriented to place, oriented to time, oriented to situation, CN II-XII grossly intact. ABSENT: motor sensory deficit. Psychiatric exam: PRESENT: appropriate affect. Delayed processing and response to conversation. Skin exam: PRESENT: dry, intact. ABSENT: rash Results Laboratory Results: WBC 7.5 10^3/uL (4.0-10.5) 08/22/20 07:18 RBC 3.84 10^6/uL (3.72-5.28) 08/22/20 07:18 Hgb 9.5 g/dL (12.0-15.5) L 08/22/20 07:18 Hct 27.8 % (36.0-47.0) L 08/22/20 07:18 MCV 73 fl (80-97) L 08/22/20 07:18 MCH 24.6 pg (27.0-33.4) L 08/22/20 07:18 MCHC 34.0 g/dL (32.0-36.0) 08/22/20 07:18 RDW 16.4 % (11.5-14.0) H 08/22/20 07:18 Plt Count 418 10^3/uL (150-450) 08/22/20 07:18 Lymph % (Auto) 31.8 % (13-45) 08/22/20 07:18 [place] % (Auto) 7.7 % (3-13) 08/22/20 07:18 Eos % (Auto) 2.0 % (0-6) 08/22/20 07:18 Baso % (Auto) 0.3 % (0-2) 08/22/20 07:18 Absolute Neuts (auto) 4.4 10^3/uL (1.7-8.2) 08/22/20 07:18 Absolute Lymphs (auto) 2.4 10^3/uL (0.5-4.7) 08/22/20 07:18 Absolute Monos (auto) 0.6 10^3/uL (0.1-1.4) 08/22/20 07:18 Absolute Eos (auto) 0.2 10^3/uL (0.0-0.6) 08/22/20 07:18 Absolute Basos (auto) 0.0 10^3/uL (0.0-0.2) 08/22/20 07:18 Seg Neutrophils % 58.2 % (42-78) 08/22/20 07:18 ESR 105 mm/hr (0-20) H 08/21/20 15:30 PT 14.1 SEC (11.4-15.4) 08/21/20 15:30 INR 1.07 08/21/20 15:30 APTT 36.0 SEC (23.5-35.8) H 08/21/20 15:30 D-Dimer 1.65 ug/mL (0.00-0.50) H 08/21/20 15:30 Sodium 137.2 mmol/L (137-145) 08/22/20 07:18 Potassium 3.8 mmol/L (3.6-5.0) 08/22/20 07:18 Chloride 102 mmol/L (98-107) 08/22/20 07:18 Carbon Dioxide 23 mmol/L (22-30) 08/22/20 07:18 Anion Gap 12 (5-19) 08/22/20 07:18 BUN 13 mg/dL (7-20) 08/22/20 07:18 Creatinine 0.69 mg/dL (0.52-1.25) 08/22/20 07:18 Est GFR ( Amer) > 60 (>60) 08/22/20 07:18 Est GFR (MDRD) Non-Af > 60 (>60) 08/22/20 07:18 Glucose 99 mg/dL (75-110) 08/22/20 07:18 Calcium 8.9 mg/dL (8.4-10.2) 08/22/20 07:18 Magnesium 2.4 mg/dL (1.6-2.3) H 08/22/20 07:18 Total Bilirubin 0.8 mg/dL (0.2-1.3) 08/22/20 07:18 Direct Bilirubin 0.3 mg/dL (0.0-0.4) 08/22/20 07:18 Neonat Total Bilirubin Not Reportable 08/22/20 07:18 Neonat Direct Bilirubin Not Reportable 08/22/20 07:18 Neonat Indirect Bili Not Reportable 08/22/20 07:18 AST 29 U/L (14-36) 08/22/20 07:18 ALT 24 U/L (<35) 08/22/20 07:18 Alkaline Phosphatase 60 U/L (38-126) 08/22/20 07:18 Creatine Kinase 279 U/L (30-135) H 08/21/20 15:30 CK-MB (CK-2) 0.33 ng/mL (<4.55) 08/21/20 15:30 Troponin I 0.024 ng/mL 08/22/20 07:18 C-Reactive Protein 49.3 mg/L (<10.0) H 08/21/20 15:30 Total Protein 8.2 g/dL (6.3-8.2) 08/22/20 07:18 Albumin 3.7 g/dL (3.5-5.0) 08/22/20 07:18 TSH 1.20 uIU/mL (0.47-4.68) 08/21/20 15:30 Urine HCG, Qual NEGATIVE (NEGATIVE) 08/21/20 15:30 COVID-19 Source Cancelled 08/21/20 17:30 COVID-19 ([facility]) Cancelled 08/21/20 17:30 Influenza A (RT-PCR) NEGATIVE (NEGATIVE) 08/21/20 17:30 Influenza B (RT-PCR) NEGATIVE (NEGATIVE) 08/21/20 17:30 RSV (RT-PCR) NEGATIVE (NEGATIVE) 08/21/20 17:30 SARS-CoV-2 Rap RNA(RT-PCR) NEGATIVE (NEGATIVE) 08/21/20 17:30 08/21/20 08/21/20 08/22/20 15:30 19:23 01:32 CK-MB (CK-2) 0.33 Troponin I 0.052 0.040 0.034 08/22/20 07:18 CK-MB (CK-2) Troponin I 0.024 Impressions: Chest X-Ray 08/21/20 13:50 IMPRESSION: NO ACUTE RADIOGRAPHIC FINDING IN THE CHEST. Chest/Abdomen CTA 08/21/20 18:12 IMPRESSION: Pulmonary emboli are seen in several branches of pulmonary arteries supplying both lungs. Nonspecific fat attenuation lesion in the pancreas. Plan Plan of Treatment: Xarelto 15 mg twice daily for 21 days followed by 20 mg once daily for at least 3 months. Goals: Establish primary care provider in order to obtain continued medication and disease management. Time Spent: Greater than 30 Minutes Stroke Is this a Stroke Patient?: No Acute Heart Failure Is this a Heart Failure Patient?: No
[2020-08-23 16:31] VITALS: BP 110/63
== END 2020-08-23 16:26 | disposition home or self-care (01) ==
LOC: ER 12:47 → EH 22:26 → INTOOBSV 22:26 → 4N 08-22 00:30
PROVIDERS: ADMIT Internal Medicine; ATTEND Physician Assistant
DX: I26.99 Other pulmonary embolism without acute cor pulmonale (principal); R79.89 Other specified abnormal findings of blood chemistry; E66.01 Morbid (severe) obesity due to excess calories; Z68.41 Body mass index [BMI] 40.0-44.9, adult; R62.50 Unspecified lack of expected normal physiological development in childhood; R07.9 Chest pain, unspecified; R53.1 Weakness; R50.9 Fever, unspecified; R43.8 Other disturbances of smell and taste; R07.81 Pleurodynia; R05 Cough; R06.82 Tachypnea, not elsewhere classified; Z88.2 Allergy status to sulfonamides; Z20.828 Contact with and (suspected) exposure to other viral communicable diseases
CPT/HCPCS: 93005; 99285; 36415 ×2; 82553; 82550; 83735; 84443; 85025 ×2; 85652; 85610; 85730; 0241U ×4; 81025; 86140; 80053 ×2; 84484 ×2; 85379; 93306; 71045; 71275; 94799; 93010; 94667; G0378 ×3; C9803